=== PATIENT | female | born 1945 | race Caucasian/White ===

== ENCOUNTER 2019-12-16 10:41 | Outpatient (CLI) | payer MEDICARE, BC, SELFPAY ==
--- NOTE | ~2019-12-16 | MM_ITS ---
EXAMINATION: MM screening ramsey BI w sam HISTORY: Screening mammogram TECHNIQUE: Craniocaudal and mediolateral oblique 3-D tomosynthesis images were obtained and synthetic 2-D images were generated. CAD analysis was submitted and interpreted. COMPARISON: No prior mammogram is available for comparison at this institution. BREAST PARENCHYMAL COMPOSITION: There are scattered areas of fibroglandular density. FINDINGS: There are at least 2 right breast masses measuring 10 and 17 mm dimension. Bilateral asymme try is noted. Bilateral diagnostic mammography is recommended, with ultrasound of the right breast at a minimum, left breast ultrasound if appropriate at time of the diagnostic mammogram. IMPRESSION: 1. Right breast masses and bilateral mammographic asymmetries 2. Bilateral diagnostic mammography, right and possibly left breast ultrasound examination BI-RADS Category 0: Incomplete: Needs additional imaging evaluation. Reviewed, dictated and finalized at location A.
== END 2019-12-16 10:42 | disposition home or self-care (01) ==
LOC: ANHIMG 10:48
PROVIDERS: PCP Internal Medicine; Visit Provider Internal Medicine
DX: Z12.31 Encounter for screening mammogram for malignant neoplasm of breast (principal); N63.10 Unspecified lump in the right breast, unspecified quadrant
CPT/HCPCS: 77063; 77067

== ENCOUNTER 2019-12-29 12:09 | Outpatient (CLI) | payer MEDICARE, BC, SELFPAY ==
--- NOTE | ~2019-12-29 | MMUS_ITS ---
EXAMINATION: MM diagnostic mammo BI, US breast BI complete HISTORY: Right breast masses in bilateral mammographic asymmetries reported on 12/16/2019 bilateral dig ital screening mammogram TECHNIQUE: Additional 3-D tomosynthesis images of the breasts were performed and synthetic 2-D images were generated. CAD analysis was submitted and interpreted. High resolution bilateral complete breas t ultrasound was performed. COMPARISON: 12/16/2019 bilateral digital screening mammogram FINDINGS: MAMMOGRAPHIC FINDINGS: At least 3 right breast masses are noted, low-density, circumscribed, measuring up to approximately 1 .4 cm dimension. There is bilateral heterogeneous density which may obscure small masses. Bilateral complete ultrasoun d examination was performed. Scattered bilateral benign calcifications. ULTRASOUND: Right breast: 12:00 2 cm from nipple: Circumscribed circular hypoechoic approximately 3.5 mm mass without internal vascularity or posterior shadowing; ultrasound-guided biopsy is recommended. There are multiple right breast cysts, the largest situated at 9:00 1 cm from the nipple, measuring u p to 2 x 1.3 x 1.7 cm dimension, with minimal septation. 9:00 2 cm from nipple: Irregular antiparallel hypoechoic solid mass measuring up to 4.2 mm x 4.4 mm o r greater, with posterior shadowing; ultrasound-guided biopsy is recommended. Left breast: There are scattered left breast cysts, the largest measuring approximately 9 mm at 5:00 1 cm from the nipple. No suspicious left breast mass for left breast shadowing is evident. IMPRESSION: 1. 2 solid indeterminate masses of right breast, at 12:00 and 9:00 2. Ultrasound-guided biopsy of 2 right breast masses at 12:00 and 9:00 BI-RADS category 4, suspicious findings. On 12/29/[address] Nuñez telephoned the report and ultrasound guided biopsy recommendation for right breast masses at 12 and 9:00 positions to Jayde, [employer] to Dr. Jonny Abbasi. Reviewed, dictated and finalized at location A. IMPRESSION: 1. 2 solid indeterminate masses of right breast, at 12:00 and 9:00 2. Ultrasound-guided biopsy of 2 right breast masses at 12:00 and 9:00 BI-RADS category 4, suspicious findings. On 12/29/[address] Nuñez telephoned the report and ultrasound guided biopsy recommendation for right breast masses at 12 and 9:00 positions to Candice panchal, [employer] to Dr. Jonny Abbasi. IMPRESSION: 1. 2 solid indeterminate masses of right breast, at 12:00 and 9:00 2. Ultrasound-guided biopsy of 2 right breast masses at 12:00 and 9:00 BI-RADS category 4, suspicious findings. On 12/29/[address] Nuñez telephoned the report and ultrasound guided biopsy recommendation for right breast masses at 12 and 9:00 positions to Candice panchal [employer] to Dr. Jonny Abbasi.
== END 2019-12-29 12:10 | disposition home or self-care (01) ==
LOC: ANHIMG 12:10
PROVIDERS: PCP Internal Medicine; Visit Provider Internal Medicine
DX: R92.8 Other abnormal and inconclusive findings on diagnostic imaging of breast (principal)
CPT/HCPCS: 76641; 77066

== ENCOUNTER 2020-01-06 09:30 | Outpatient (CLI) | payer MEDICARE, BC, SELFPAY ==
--- NOTE | ~2020-01-06 | US_ITS ---
EXAMINATION: US breast cyst asp RT DATE: 01/06/2020 11:29 INDICATION: Abnormal right mammogram and ultrasound Ultrasound-guided core biopsy is requested to ev aluate for malignancy. TECHNIQUE AND FINDINGS: Patient presents for ultrasound-guided biopsy of mass is identified at 12:00 and 9:00 location of the right breast on recent diagnostic mammogram and ultrasound. With real-time scanning, no suspicious m ass is identified at the 9:00 location of the breast. A 3 mm hypoechoic mass is seen at the 12:00 loc ation 2 cm from the nipple. Given the number of cysts elsewhere in the right breast and in the left b reast, an initial attempt at aspiration was discussed with the patient. The risks and potential benef its of the procedure were discussed with the patient including bleeding and infection. A time out was performed. The skin of the right breast was prepared and draped in usual sterile fashion. 1% lidocai ne was used for superficial anesthesia. 1% lidocaine with epinephrine was used for deep anesthesia. An 18-gauge needle was advanced into the lesion from a medial approach utilizing sonographic guidance . The lesion was identifiable after gentle aspiration. Hemostasis was achieved. A sterile bandage was applied. The patient tolerated procedure well and there was no evidence of immediate complication. IMPRESSION: 1. Successful ultrasound-guided right breast cyst aspiration. Reviewed, dictated and finalized at location A.
== END 2020-01-06 09:31 | disposition home or self-care (01) ==
LOC: ANHIMG 09:41
PROVIDERS: PCP Internal Medicine; Visit Provider Internal Medicine
DX: R92.8 Other abnormal and inconclusive findings on diagnostic imaging of breast (principal)
CPT/HCPCS: 19000

== ENCOUNTER 2020-04-17 10:00 | Outpatient (RCR) | payer MEDICARE, BC, SELFPAY ==
[2020-03-08 10:27] LABS: Anion Gap 8.4 mmol/L (7-16); Blood Urea Nitrogen 17 mg/dL (7-17); Carbon Dioxide 28 mmol/L (22-30); Chloride 104 mmol/L (98-107); Estimated Glomerular Filt Rate 44; Glucose 144 mg/dL (65-105); Magnesium 1.6 mg/dL (1.6-2.3); Phosphorus 3.3 mg/dL (2.5-4.5); Potassium 4.4 mmol/L (3.4-5.0); Sodium 136 mmol/L (137-145)
[2020-03-08 10:32] LABS: Albumin Level 3.4 g/dL (3.5-5.1)
[2020-03-08 10:36] LABS: Hematocrit 27.2 % (37.0-47.0); Hemoglobin 8.7 g/dL (12.0-15.0); Mean Corpuscular Hemoglobin 31.2 pg (26-34); Mean Corpuscular Volume 97.5 fl (80-100); Mean Platelet Volume 10.7 fl (7.4-10.4); Platelet Count Result 228 k/mm3 (150-375); Red Blood Count 2.79 M/mm3 (4.2-5.4); Red Cell Distribution Width 15.2 % (11.5-14.5); White Blood Count 9.6 K/mm3 (4.5-10.0)
[2020-03-12 10:46] LABS: Tacrolimus Prograf 5.4 mcg/L
[2020-03-12 11:04] LABS: Hematocrit 30.3 % (37.0-47.0); Hemoglobin 9.7 g/dL (12.0-15.0); Mean Corpuscular Hemoglobin 31.2 pg (26-34); Mean Corpuscular Volume 97.4 fl (80-100); Mean Platelet Volume 11.1 fl (7.4-10.4); Platelet Count Result 280 k/mm3 (150-375); Red Blood Count 3.11 M/mm3 (4.2-5.4); Red Cell Distribution Width 15.9 % (11.5-14.5); White Blood Count 10.5 K/mm3 (4.5-10.0)
[2020-03-12 11:24] LABS: Albumin Level 3.4 g/dL (3.5-5.1); Anion Gap 10.6 mmol/L (7-16); Blood Urea Nitrogen 20 mg/dL (7-17); Calcium 8.6 mg/dL (8.4-10.2); Carbon Dioxide 26 mmol/L (22-30); Chloride 103 mmol/L (98-107); Estimated Glomerular Filt Rate 44; Glucose 213 mg/dL (65-105); Magnesium 1.6 mg/dL (1.6-2.3); Phosphorus 3.6 mg/dL (2.5-4.5); Potassium 4.6 mmol/L (3.4-5.0); Sodium 135 mmol/L (137-145)
[2020-03-14 18:29] LABS: Tacrolimus Prograf 7.7 mcg/L
[2020-03-15 10:36] LABS: Hematocrit 30.7 % (37.0-47.0); Hemoglobin 9.9 g/dL (12.0-15.0); Mean Corpuscular HGB Conc 32.2 g/dl (32-36); Mean Corpuscular Hemoglobin 31.3 pg (26-34); Mean Corpuscular Volume 97.2 fl (80-100); Mean Platelet Volume 10.9 fl (7.4-10.4); Platelet Count Result 251 k/mm3 (150-375); Red Blood Count 3.16 M/mm3 (4.2-5.4); Red Cell Distribution Width 15.8 % (11.5-14.5); White Blood Count 11.9 K/mm3 (4.5-10.0)
[2020-03-15 11:03] LABS: Blood Urea Nitrogen 24 mg/dL (7-17); Calcium 9.1 mg/dL (8.4-10.2); Carbon Dioxide 24 mmol/L (22-30); Chloride 102 mmol/L (98-107); Estimated Glomerular Filt Rate 40; Glucose 294 mg/dL (65-105); Magnesium 1.6 mg/dL (1.6-2.3); Phosphorus 3.7 mg/dL (2.5-4.5); Sodium 132 mmol/L (137-145)
[2020-03-15 11:16] LABS: Albumin Level 3.6 g/dL (3.5-5.1)
[2020-03-17 19:36] LABS: Tacrolimus Prograf 10.7 mcg/L
[2020-03-19 10:36] LABS: Albumin Level 3.7 g/dL (3.5-5.1); Anion Gap 6 mmol/L (8-16); Blood Urea Nitrogen 26 mg/dL (7-17); Calcium 8.9 mg/dL (8.4-10.2); Carbon Dioxide 24 mmol/L (22-30); Chloride 102 mmol/L (98-107); Estimated Glomerular Filt Rate 40; Glucose 309 mg/dL (65-105); Magnesium 1.7 mg/dL (1.6-2.3); Phosphorus 3.7 mg/dL (2.5-4.5); Potassium 4.7 mmol/L (3.4-5.0); Sodium 132 mmol/L (137-145)
[2020-03-19 10:38] LABS: Hematocrit 33.2 % (37.0-47.0); Hemoglobin 10.7 g/dL (12.0-15.0); Mean Corpuscular HGB Conc 32.2 g/dl (32-36); Mean Corpuscular Hemoglobin 31.3 pg (26-34); Mean Corpuscular Volume 97.1 fl (80-100); Mean Platelet Volume 11.4 fl (7.4-10.4); Platelet Count Result 190 k/mm3 (150-375); Red Blood Count 3.42 M/mm3 (4.2-5.4); Red Cell Distribution Width 15.9 % (11.5-14.5); White Blood Count 9.6 K/mm3 (4.5-10.0)
[2020-03-21 11:53] LABS: Tacrolimus Prograf 12.6 mcg/L
[2020-03-22 09:34] LABS: Hematocrit 32.7 % (37.0-47.0); Hemoglobin 10.5 g/dL (12.0-15.0); Mean Corpuscular HGB Conc 32.1 g/dl (32-36); Mean Corpuscular Hemoglobin 31.8 pg (26-34); Mean Corpuscular Volume 99.1 fl (80-100); Mean Platelet Volume 11.6 fl (7.4-10.4); Platelet Count Result 171 k/mm3 (150-375); Red Cell Distribution Width 16.1 % (11.5-14.5); White Blood Count 7.2 K/mm3 (4.5-10.0)
[2020-03-22 09:48] LABS: Albumin Level 3.5 g/dL (3.5-5.1); Anion Gap 6 mmol/L (8-16); Blood Urea Nitrogen 23 mg/dL (7-17); Calcium 8.9 mg/dL (8.4-10.2); Carbon Dioxide 23 mmol/L (22-30); Chloride 104 mmol/L (98-107); Estimated Glomerular Filt Rate 40; Glucose 341 mg/dL (65-105); Magnesium 1.7 mg/dL (1.6-2.3); Phosphorus 3.3 mg/dL (2.5-4.5); Sodium 133 mmol/L (137-145)
[2020-03-25 19:31] LABS: Tacrolimus Prograf 13.7 mcg/L
[2020-03-26 09:38] LABS: Hemoglobin 10.7 g/dL (12.0-15.0); Mean Corpuscular HGB Conc 32.4 g/dl (32-36); Mean Corpuscular Hemoglobin 31.8 pg (26-34); Mean Corpuscular Volume 97.9 fl (80-100); Mean Platelet Volume 11.2 fl (7.4-10.4); Platelet Count Result 166 k/mm3 (150-375); Red Blood Count 3.37 M/mm3 (4.2-5.4); Red Cell Distribution Width 15.8 % (11.5-14.5); White Blood Count 6.8 K/mm3 (4.5-10.0)
[2020-03-26 09:49] LABS: Albumin Level 3.3 g/dL (3.5-5.1); Anion Gap 5 mmol/L (8-16); Blood Urea Nitrogen 20 mg/dL (7-17); Calcium 8.7 mg/dL (8.4-10.2); Carbon Dioxide 24 mmol/L (22-30); Chloride 107 mmol/L (98-107); Estimated Glomerular Filt Rate 44; Glucose 185 mg/dL (65-105); Magnesium 1.7 mg/dL (1.6-2.3); Phosphorus 3.6 mg/dL (2.5-4.5); Potassium 4.9 mmol/L (3.4-5.0); Sodium 136 mmol/L (137-145)
[2020-03-28 00:32] LABS: Tacrolimus Prograf 13.2 mcg/L
[2020-03-29 09:35] LABS: Hematocrit 33.7 % (37.0-47.0); Hemoglobin 11.1 g/dL (12.0-15.0); Mean Corpuscular HGB Conc 32.9 g/dl (32-36); Mean Corpuscular Hemoglobin 32.4 pg (26-34); Mean Corpuscular Volume 98.3 fl (80-100); Mean Platelet Volume 11.6 fl (7.4-10.4); Platelet Count Result 157 k/mm3 (150-375); Red Blood Count 3.43 M/mm3 (4.2-5.4); Red Cell Distribution Width 15.9 % (11.5-14.5); White Blood Count 5.7 K/mm3 (4.5-10.0)
[2020-03-29 09:51] LABS: Albumin Level 3.5 g/dL (3.5-5.1); Anion Gap 4 mmol/L (8-16); Blood Urea Nitrogen 19 mg/dL (7-17); Calcium 8.9 mg/dL (8.4-10.2); Carbon Dioxide 24 mmol/L (22-30); Chloride 107 mmol/L (98-107); Estimated Glomerular Filt Rate 37; Glucose 222 mg/dL (65-105); Magnesium 1.6 mg/dL (1.6-2.3); Phosphorus 3.7 mg/dL (2.5-4.5); Potassium 4.9 mmol/L (3.4-5.0); Sodium 135 mmol/L (137-145)
[2020-04-02 09:34] LABS: Hematocrit 33.9 % (37.0-47.0); Hemoglobin 11.2 g/dL (12.0-15.0); Mean Corpuscular Hemoglobin 32.4 pg (26-34); Mean Platelet Volume 11.4 fl (7.4-10.4); Platelet Count Result 153 k/mm3 (150-375); Red Blood Count 3.46 M/mm3 (4.2-5.4); White Blood Count 5.4 K/mm3 (4.5-10.0)
[2020-04-02 09:44] LABS: Albumin Level 3.5 g/dL (3.5-5.1); Anion Gap 6 mmol/L (8-16); Blood Urea Nitrogen 16 mg/dL (7-17); Calcium 8.9 mg/dL (8.4-10.2); Carbon Dioxide 24 mmol/L (22-30); Chloride 106 mmol/L (98-107); Estimated Glomerular Filt Rate 40; Glucose 247 mg/dL (65-105); Magnesium 1.5 mg/dL (1.6-2.3); Phosphorus 3.7 mg/dL (2.5-4.5); Potassium 4.7 mmol/L (3.4-5.0); Sodium 136 mmol/L (137-145)
[2020-04-04 18:42] LABS: Tacrolimus Prograf 14.4 mcg/L
[2020-04-05 11:02] LABS: Hematocrit 34.7 % (37.0-47.0); Mean Corpuscular HGB Conc 31.7 g/dl (32-36); Mean Corpuscular Hemoglobin 31.5 pg (26-34); Mean Corpuscular Volume 99.4 fl (80-100); Mean Platelet Volume 11.6 fl (7.4-10.4); Platelet Count Result 158 k/mm3 (150-375); Red Blood Count 3.49 M/mm3 (4.2-5.4); Red Cell Distribution Width 15.8 % (11.5-14.5); White Blood Count 5.1 K/mm3 (4.5-10.0)
[2020-04-05 11:11] LABS: Albumin Level 3.6 g/dL (3.5-5.1); Anion Gap 5 mmol/L (8-16); Blood Urea Nitrogen 16 mg/dL (7-17); Carbon Dioxide 25 mmol/L (22-30); Chloride 107 mmol/L (98-107); Estimated Glomerular Filt Rate 40; Glucose 149 mg/dL (65-105); Magnesium 1.6 mg/dL (1.6-2.3); Phosphorus 3.8 mg/dL (2.5-4.5); Potassium 4.7 mmol/L (3.4-5.0); Sodium 137 mmol/L (137-145)
[2020-04-07 19:19] LABS: Tacrolimus Prograf 10.7 mcg/L
[2020-04-09 11:21] LABS: Hemoglobin 11.5 g/dL (12.0-15.0); Mean Corpuscular HGB Conc 32.9 g/dl (32-36); Mean Corpuscular Volume 100.6 fl (80-100); Mean Platelet Volume 11.2 fl (7.4-10.4); Platelet Count Result 164 k/mm3 (150-375); Red Blood Count 3.48 M/mm3 (4.2-5.4); White Blood Count 5.9 K/mm3 (4.5-10.0)
[2020-04-09 11:30] LABS: Albumin Level 3.6 g/dL (3.5-5.1); Anion Gap 6 mmol/L (8-16); Blood Urea Nitrogen 16 mg/dL (7-17); Calcium 8.9 mg/dL (8.4-10.2); Carbon Dioxide 25 mmol/L (22-30); Chloride 105 mmol/L (98-107); Estimated Glomerular Filt Rate 40; Glucose 153 mg/dL (65-105); Magnesium 1.5 mg/dL (1.6-2.3); Phosphorus 3.8 mg/dL (2.5-4.5); Potassium 4.1 mmol/L (3.4-5.0); Sodium 136 mmol/L (137-145)
[2020-04-11 17:40] LABS: Tacrolimus Prograf 8.2 mcg/L
[2020-04-17 10:28] LABS: Hemoglobin 11.4 g/dL (12.0-15.0); Mean Corpuscular HGB Conc 32.6 g/dl (32-36); Mean Corpuscular Hemoglobin 32.6 pg (26-34); Mean Platelet Volume 11.2 fl (7.4-10.4); Platelet Count Result 175 k/mm3 (150-375); Red Cell Distribution Width 15.4 % (11.5-14.5); White Blood Count 5.1 K/mm3 (4.5-10.0)
[2020-04-17 10:42] LABS: Albumin Level 3.4 g/dL (3.5-5.1); Anion Gap 6 mmol/L (8-16); Blood Urea Nitrogen 14 mg/dL (7-17); Calcium 8.5 mg/dL (8.4-10.2); Carbon Dioxide 26 mmol/L (22-30); Chloride 106 mmol/L (98-107); Estimated Glomerular Filt Rate 49; Glucose 207 mg/dL (65-105); Magnesium 1.5 mg/dL (1.6-2.3); Phosphorus 3.6 mg/dL (2.5-4.5); Potassium 4.1 mmol/L (3.4-5.0); Sodium 138 mmol/L (137-145)
== END 2020-06-06 23:59 | disposition home or self-care (01) ==
LOC: HOME HLTH 10:00
PROVIDERS: PCP Internal Medicine; Visit Provider Transplant Surgery
DX: Z48.22 Encounter for aftercare following kidney transplant (principal); D63.1 Anemia in chronic kidney disease; E11.22 Type 2 diabetes mellitus with diabetic chronic kidney disease; N18.6 End stage renal disease; I12.0 Hypertensive chronic kidney disease with stage 5 chronic kidney disease or end stage renal disease; I25.10 Atherosclerotic heart disease of native coronary artery without angina pectoris
CPT/HCPCS: 80069; 80197; 83735; 85027